=== PATIENT | male | born 1945 | race Asian ===

== ENCOUNTER → 2023-11-26 09:46 | Outpatient (REF) | payer MEDICARE, OTHER, SELFPAY ==
[2023-11-26 10:34] LABS: ALT (SGPT) 20 U/L (0-50); AST (SGOT) 19 U/L (17-59); Albumin 3.7 g/dl (3.5-5.0); Alkaline Phosphatase 100 U/L (38-126); Blood Urea Nitrogen 37 mg/dl (9-20); Calcium 9.2 mg/dl (8.4-10.2); Carbon Dioxide 22 mmol/L (22-30); Chloride 107 mmol/L (98-107); Glucose 111 mg/dl (70-99); HDL Cholesterol 41 mg/dl; LDL Cholesterol, Calculated 64 mg/dl; Potassium 4.5 mmol/L (3.5-5.1); Sodium 139 mmol/L (135-145); Total Bilirubin 0.4 mg/dl (0.2-1.3); Total Cholesterol 120 mg/dl (50-199); Total Protein 6.9 g/dl (6.3-8.2); Triglyceride 77 mg/dl (10-149); Very Low Density Lipoprotein 15 mg/dl (0-30); eGFR 28.35
[2023-11-26 10:36] LABS: Hematocrit 39.3 % (39.0-52.0); Hemoglobin 12.4 g/dL (13.0-18.0); Mean Corp Hgb Conc. 31.6 g/dL (33.0-37.0); Mean Corpuscular Hgb 27.4 pg (27.0-31.0); Mean Corpuscular Volume 86.9 fL (80.0-94.0); Mean Platelet Volume 10.1 fL (7.4-10.4); Platelet Count 288 10^3/uL (130-400); Red Blood Cell Count 4.52 10^6/uL (4.70-6.10); Red Cell Dist. Width 13.6 % (11.5-14.5); White Blood Cell Count 7.4 10^3/uL (4.8-10.8)
[2023-11-26 14:06] LABS: Glycohemoglobin (HgbA1c) 7.1 % (4.0-5.6)
[2023-11-27 14:25] LABS: Keppra (Levetiracetam) <2 ug/mL (10-40)
== END ==
LOC: OLABN 09:46
PROVIDERS: ATTENDING PHYSICIAN Internal Medicine Geriatric Medicine
DX: E11.9 Type 2 diabetes mellitus without complications (principal); E78.5 Hyperlipidemia, unspecified; E55.9 Vitamin D deficiency, unspecified
CPT/HCPCS: 36415; 80053; 80061; 80177; 82248; 82306; 83036; 85027

== ENCOUNTER → 2024-02-25 09:56 | Outpatient (REF) | payer MEDICARE, OTHER, SELFPAY ==
[2024-02-25 11:08] LABS: Blood Urea Nitrogen 36 mg/dl (9-20); Calcium 9.2 mg/dl (8.4-10.2); Carbon Dioxide 20 mmol/L (22-30); Chloride 112 mmol/L (98-107); Glucose 108 mg/dl (70-99); Potassium 4.1 mmol/L (3.5-5.1); Sodium 142 mmol/L (135-145); eGFR 25.65
[2024-02-25 13:33] LABS: Glycohemoglobin (HgbA1c) 7.5 % (4.0-5.6)
== END ==
LOC: OLABN 09:56
PROVIDERS: ATTENDING PHYSICIAN Internal Medicine Geriatric Medicine
DX: E11.9 Type 2 diabetes mellitus without complications (principal)
CPT/HCPCS: 36415; 80048; 83036

== ENCOUNTER → 2024-05-14 07:21 | Outpatient (REF) | payer MEDICARE, OTHER, SELFPAY ==
[2024-05-14 08:50] LABS: % Basophils 0.3 % (0-2); % Eosinophils 1.7 % (0-6); % Immature Granulocytes 0.2 % (0-0.5); % Lymphocytes 11.8 % (20.5-51.1); % Monocytes 11.9 % (1.7-9.3); % Neutrophils 74.1 % (42.2-75.2); Absolute Eosinophils 0.2 10^3/uL (0-0.7); Absolute Monocytes 1.1 10^3/uL (0.1-0.6); Absolute Neutrophils 6.5 10^3/uL (1.4-6.5); Hematocrit 41.6 % (39.0-52.0); Hemoglobin 13.5 g/dL (13.0-18.0); Mean Corp Hgb Conc. 32.5 g/dL (33.0-37.0); Mean Corpuscular Hgb 28.4 pg (27.0-31.0); Mean Corpuscular Volume 87.4 fL (80.0-94.0); Mean Platelet Volume 9.8 fL (7.4-10.4); Nucleated Red Blood Cells % 0 % (-); Platelet Count 273 10^3/uL (130-400); Red Blood Cell Count 4.76 10^6/uL (4.70-6.10); Red Cell Dist. Width 13.7 % (11.5-14.5); White Blood Cell Count 8.8 10^3/uL (4.8-10.8)
[2024-05-14 10:49] LABS: ALT (SGPT) 21 U/L (0-50); AST (SGOT) 20 U/L (17-59); Albumin 3.9 g/dl (3.5-5.0); Alkaline Phosphatase 100 U/L (38-126); Blood Urea Nitrogen 34 mg/dl (9-20); Calcium 9.4 mg/dl (8.4-10.2); Carbon Dioxide 22 mmol/L (22-30); Chloride 109 mmol/L (98-107); Glucose 125 mg/dl (70-99); HDL Cholesterol 49 mg/dl; LDL Cholesterol, Calculated 67 mg/dl; Sodium 144 mmol/L (135-145); Total Bilirubin 0.6 mg/dl (0.2-1.3); Total Cholesterol 137 mg/dl (50-199); Total Protein 7.2 g/dl (6.3-8.2); Triglyceride 108 mg/dl (10-149); Very Low Density Lipoprotein 21 mg/dl (0-30); eGFR 29.72
[2024-05-14 12:15] LABS: Glycohemoglobin (HgbA1c) 6.8 % (4.0-5.6)
== END ==
LOC: REG 07:21
PROVIDERS: ATTENDING PHYSICIAN Internal Medicine
DX: I69.359 Hemiplegia and hemiparesis following cerebral infarction affecting unspecified side (principal); E11.22 Type 2 diabetes mellitus with diabetic chronic kidney disease; N18.4 Chronic kidney disease, stage 4 (severe); N40.1 Benign prostatic hyperplasia with lower urinary tract symptoms
CPT/HCPCS: 36415; 80053; 80061; 83036; 85025

== ENCOUNTER → 2025-01-21 15:41 | Outpatient (REF) | payer MEDICARE, OTHER, MEDICAID, SELFPAY ==
[2025-01-21 16:46] LABS: % Basophils 0.4 % (0-2); % Eosinophils 0.9 % (0-6); % Immature Granulocytes 0.4 % (0-0.5); % Lymphocytes 14.3 % (20.5-51.1); % Monocytes 10.7 % (1.7-9.3); % Neutrophils 73.3 % (42.2-75.2); Absolute Eosinophils 0.1 10^3/uL (0-0.7); Absolute Lymphocytes 1.1 10^3/uL (1.2-3.4); Absolute Monocytes 0.8 10^3/uL (0.1-0.6); Absolute Neutrophils 5.5 10^3/uL (1.4-6.5); Hematocrit 44.5 % (39.0-52.0); Hemoglobin 14.4 g/dL (13.0-18.0); Mean Corp Hgb Conc. 32.4 g/dL (33.0-37.0); Mean Corpuscular Hgb 26.6 pg (27.0-31.0); Mean Corpuscular Volume 82.3 fL (80.0-94.0); Mean Platelet Volume 9.9 fL (7.4-10.4); Nucleated Red Blood Cells % 0 % (-); Platelet Count 270 10^3/uL (130-400); Red Blood Cell Count 5.41 10^6/uL (4.70-6.10); White Blood Cell Count 7.5 10^3/uL (4.8-10.8)
[2025-01-21 17:00] LABS: ALT (SGPT) 25 U/L (0-50); AST (SGOT) 21 U/L (17-59); Albumin 3.7 g/dl (3.5-5.0); Alkaline Phosphatase 95 U/L (38-126); Blood Urea Nitrogen 38 mg/dl (9-20); Calcium 9.2 mg/dl (8.4-10.2); Carbon Dioxide 21 mmol/L (22-30); Chloride 113 mmol/L (98-107); Glucose 122 mg/dl (70-99); HDL Cholesterol 42 mg/dl; LDL Cholesterol, Calculated 77 mg/dl; Potassium 4.5 mmol/L (3.5-5.1); Sodium 142 mmol/L (135-145); Total Bilirubin 0.4 mg/dl (0.2-1.3); Total Cholesterol 149 mg/dl (50-199); Total Protein 6.8 g/dl (6.3-8.2); Triglyceride 150 mg/dl (10-149); Very Low Density Lipoprotein 30 mg/dl (0-30)
[2025-01-21 17:20] LABS: Microalbumin, Random Urine > 57.0 mg/dl (0.6-1.7)
[2025-01-22 09:34] LABS: Glycohemoglobin (HgbA1c) 6.9 % (4.0-5.6)
== END ==
LOC: REG 15:41
PROVIDERS: ATTENDING PHYSICIAN Internal Medicine
DX: E11.22 Type 2 diabetes mellitus with diabetic chronic kidney disease (principal); N18.4 Chronic kidney disease, stage 4 (severe); I10 Essential (primary) hypertension; Z86.73 Personal history of transient ischemic attack (TIA), and cerebral infarction without residual deficits; E78.2 Mixed hyperlipidemia; N13.8 Other obstructive and reflux uropathy; N40.1 Benign prostatic hyperplasia with lower urinary tract symptoms; Z00.00 Encounter for general adult medical examination without abnormal findings
CPT/HCPCS: 36415; 80053; 80061; 82043; 82570; 83036; 85025

== ENCOUNTER 2025-01-30 07:17 | Outpatient (RCR) | payer MEDICARE, OTHER, MEDICAID, SELFPAY | END 2025-01-30 11:21 | disposition home or self-care (01) | LOC: RPT 07:17 | PROVIDERS: ATTENDING PHYSICIAN Internal Medicine | DX: I69.353 Hemiplegia and hemiparesis following cerebral infarction affecting right non-dominant side (principal); R26.89 Other abnormalities of gait and mobility; I10 Essential (primary) hypertension; Z73.6 Limitation of activities due to disability | CPT/HCPCS: 97163; 97530 ==

== ENCOUNTER → 2025-06-17 07:19 | Outpatient (REF) | payer MEDICARE, OTHER, MEDICAID, SELFPAY ==
[2025-06-17 09:25] LABS: Hematocrit 44.5 % (39.0-52.0); Hemoglobin 14.3 g/dL (13.0-18.0); Mean Corp Hgb Conc. 32.1 g/dL (33.0-37.0); Mean Corpuscular Volume 85.9 fL (80.0-94.0); Nucleated Red Blood Cells % 0 % (-); Platelet Count 245 10^3/uL (130-400); Red Cell Dist. Width 13.4 % (11.5-14.5)
[2025-06-17 09:50] LABS: ALT (SGPT) 54 U/L (0-50); AST (SGOT) 36 U/L (17-59); Albumin 4.1 g/dl (3.5-5.0); Alkaline Phosphatase 123 U/L (38-126); Blood Urea Nitrogen 33 mg/dl (9-20); Calcium 9.1 mg/dl (8.4-10.2); Carbon Dioxide 21 mmol/L (22-30); Chloride 113 mmol/L (98-107); Glucose 123 mg/dl (70-99); HDL Cholesterol 47 mg/dl; LDL Cholesterol, Calculated 66 mg/dl; Potassium 5.2 mmol/L (3.5-5.1); Sodium 142 mmol/L (135-145); Total Protein 7.8 g/dl (6.3-8.2); Very Low Density Lipoprotein 26 mg/dl (0-30); eGFR 23.10
[2025-06-17 11:07] LABS: Microalb - Urine Creatinine 109.900 mg/dl
[2025-06-17 13:25] LABS: Microalbumin, Random Urine > 57.0 mg/dl (0.6-1.7)
[2025-06-17 14:24] LABS: Glycohemoglobin (HgbA1c) 7.3 % (4.0-5.6)
== END ==
LOC: REG 07:19
PROVIDERS: ATTENDING PHYSICIAN Internal Medicine
DX: E11.22 Type 2 diabetes mellitus with diabetic chronic kidney disease (principal); N18.4 Chronic kidney disease, stage 4 (severe); I10 Essential (primary) hypertension; Z86.73 Personal history of transient ischemic attack (TIA), and cerebral infarction without residual deficits; E78.2 Mixed hyperlipidemia; N13.8 Other obstructive and reflux uropathy; N40.1 Benign prostatic hyperplasia with lower urinary tract symptoms; Z00.00 Encounter for general adult medical examination without abnormal findings
CPT/HCPCS: 36415; 80053; 80061; 82043; 82570; 83036; 85025

== ENCOUNTER 2025-06-24 06:29 | Day surgery (SDC) | payer MEDICARE, OTHER, SELFPAY ==
--- NOTE | 2025-06-19 09:38 | PTCARENOTE ---
Abnormal Hgb A1C 7.[address] [place] [address] Dr Koehler's office.
[2025-06-24] VITALS (9 sets, daily range): BP systolic 12–156; BP diastolic 63–117; BMI 23.6
[2025-06-24] MEDS: TYLENOL 1000 MG PO (11:36)
[2025-06-24] MEDS: NORMOSOL-R/PLASMALYTE-A 1000 IV (11:55)
--- NOTE | 2025-06-24 14:02 | W.IMMPOSTOP ---
Addendum entered and electronically signed by Tj Koehler MD 06/24/25 14:20:
called and left a voicemail on spouse's phone
Original Note:
Surgical Immed Post Op Note
-
Primary Surgeon: Tj Koehler MD
Assisting Surgeon: None
Pre-op Diagnosis: Perineal cyst
Post-op Diagnosis: Healed perineal cyst
Procedure Performed: Exam under anesthesia
Anesthesia Type: Sedation
Specimen / Cultures: None
Estimated Blood Loss: 1 mL
Complications: None
Operative Findings: Location of chronic wound at the base of the right scrotum has completely healed; evaluated with ultrasound and no remaining subcutaneous collection/cyst seen; aspirated under the healed wound and no fluid obtained; meticulous
anoscopy without any concerning anorectal pathology
--- NOTE | 2025-06-24 14:04 | OR.RPT ---
Operative Report
Operative Report
DATE OF OPERATION: 06/24/2025
SURGEON: Tj Koehler MD
PREOPERATIVE DIAGNOSIS: Perineal cyst
POSTOPERATIVE DIAGNOSIS: Healed perineal cyst
OPERATION: Exam under anesthesia, perianal block
ASSISTANTS:
1. None
ANESTHESIA: Sedation with local
ESTIMATED BLOOD LOSS: 1 mL
FINDINGS:
1. Location of previously identified perineal chronic wound has completely healed; evaluated the area with ultrasound and needle aspiration and no concerning pathology identified
2. On anoscopy, no concerning anorectal pathology identified
SPECIMENS:
1. None
DRAINS: None
COMPLICATIONS: None
INDICATIONS: The patient is a 80-year-old male who presented to me with a chronic draining wound at the base of the scrotum. This has caused him symptoms for the last 6 months. Every 3 to 4 weeks, the cyst will open and bleed a little prior to
healing up partially. Due to the location, I suspected that this may be a perianal fistula versus a benign cyst. Therefore, the patient was recommended to have surgery to confirm the diagnosis and for possible treatment. The operation was
discussed with the patient in detail, including the risks, benefits and alternatives. Risks described included, but not limited to bleeding, infection, urinary retention, damage to nearby structures such as the anal sphincter, fecal incontinence,
anal stenosis, recurrence, and anesthetic risks. The patient understood and agreed to proceed. The consent was signed and placed in the chart.
PROCEDURE IN DETAIL: The patient was taken to the operating room. Sequential compression devices were placed bilaterally. The patient was placed on the operating table in supine position. Sedation was commenced without complication. The patient
was placed in lithotomy position with arms secured to the arm boards and pressure points padded. The perineum was prepped and draped in the usual fashion. A time-out was performed verifying the correct patient, procedure, operative site,
positioning, and special equipment.
Local anesthesia used was a mixture of 30 mL of 0.25% Marcaine with epinephrine, 30mL of 1% lidocaine plain and 0.6 mg of dexamethasone. 40 mL was injected perianally at the beginning of the case. The anorectal exam was performed assessing all four
quadrants of the anal canal using Hill-Lugo retractors in progressively increasing size. There were no concerning perianal findings. At the base of the scrotum on the right, the wound that I had identified in the office had completely closed
and what was left was a 1.5 cm scar. Additionally, he had a similar scar on the base of the left scrotum. There was no palpable tracking from these scars to the anal canal. On meticulous evaluation of the anal canal, there were no concerning
pathology identified. Specifically, there were no masses, proctitis, evidence of internal openings or concerning hemorrhoids. Using an ultrasound, I evaluated the subcutaneous space underlying the scars and no subcutaneous collection was
identified. Additionally, I used a 25-gauge needle with 10 mL syringe to aspirate in the area of the healed wounds and no fluid was identified. It appears that his chronic peroneal wound has finally healed. The remaining 20 mL of local were
injected perianally.
At this point, the procedure was complete. All needle, sponge and instrument counts were correct. The patient tolerated the procedure well and was transferred to the recovery room in stable condition with gauze dressing in place secured with silk
tape.
DICTATED BY: Tj Koehler MD
[2025-06-24 14:57] LABS: Glucose - Point of Care 94 mg/dl (70-99)
== END 2025-06-24 16:33 | disposition home or self-care (01) ==
LOC: SDS 06:29
PROVIDERS: ATTENDING PHYSICIAN Surgery; FAMILY PHYSICIAN Internal Medicine
DX: K62.89 Other specified diseases of anus and rectum (principal)
CPT/HCPCS: 45990; 82962; 86900; 86901